=== PATIENT | male | born 1975 | race Caucasian/White ===

== ENCOUNTER 2018-05-20 19:54 | Emergency (ER) | payer MEDICARE, MEDICAID ==
[~2018-05-20] VITALS: Ht 167.6 cm; Wt 81.0 kg
[2018-05-20 20:06] VITALS: BP 131/101
[2018-05-20] MEDS ORDERED: penicillin V potassium 500mg tablet PO ONE (20:15)
[2018-05-20] MEDS ORDERED: HYDROcodone/acetaminophen 10/325mg tab PO ONE (20:15)
[2018-05-20] MEDS ORDERED: PENI500T2 PO (20:18)
== END 2018-05-20 20:37 | disposition home or self-care (01) ==
LOC: ER 19:54
DX: K08.89 Other specified disorders of teeth and supporting structures (principal); J45.909 Unspecified asthma, uncomplicated; K21.9 Gastro-esophageal reflux disease without esophagitis; E11.9 Type 2 diabetes mellitus without complications; F12.90 Cannabis use, unspecified, uncomplicated; Z98.890 Other specified postprocedural states; Z56.0 Unemployment, unspecified
CPT/HCPCS: 99283

== ENCOUNTER 2019-10-01 08:31 | Emergency (ER) | payer MEDICARE, MEDICAID ==
[~2019-10-01] VITALS: Ht 170.2 cm; Wt 87.9 kg
[2019-10-01 08:38] VITALS: BP 138/89
[2019-10-01] MEDS ORDERED: AMOX-422 PO (09:10)
== END 2019-10-01 10:29 | disposition home or self-care (01) ==
LOC: ER 08:31
DX: K04.7 Periapical abscess without sinus (principal); J45.909 Unspecified asthma, uncomplicated; K21.9 Gastro-esophageal reflux disease without esophagitis; B19.20 Unspecified viral hepatitis C without hepatic coma; E11.8 Type 2 diabetes mellitus with unspecified complications; F41.9 Anxiety disorder, unspecified; F32.9 Major depressive disorder, single episode, unspecified; F20.9 Schizophrenia, unspecified; F12.90 Cannabis use, unspecified, uncomplicated; Z98.890 Other specified postprocedural states; Z56.0 Unemployment, unspecified; Z79.899 Other long term (current) drug therapy
CPT/HCPCS: 10060; 99282

== ENCOUNTER 2020-05-15 06:26 | Emergency (ER) | payer MEDICARE, MEDICAID ==
[~2020-05-15] VITALS: Ht 170.2 cm; Wt 78.0 kg
[2020-05-15] MEDS ORDERED: LIDOcaine 1% W/epiNEPHrine 1:200,000 10ml vial IJ ONE (07:50)
[2020-05-15] MEDS ORDERED: HYDROcodone/acetaminophen 10/325mg tab PO ONE (07:50)
[2020-05-15] MEDS ORDERED: amox tr/potassium clavulanate 875/125mg TAB PO ONE (07:50)
[2020-05-15] MEDS ORDERED: TETanus/Pertussis (Acell)/Diphther VAC/PF (Tdap-Adult) 0.5ml syringe IMVAC ONE (07:50)
[2020-05-15] MEDS ORDERED: LIDOcaine 1% W/epiNEPHrine 1:100,000 20ml vial SQ ONE (08:15)
[2020-05-15] MEDS ORDERED: SULF1TAB49 PO (08:59)
[2020-05-15 10:00] VITALS: BP 120/82
== END 2020-05-15 10:04 | disposition home or self-care (01) ==
LOC: ER 06:27
DX: L72.3 Sebaceous cyst (principal); J45.909 Unspecified asthma, uncomplicated; K21.9 Gastro-esophageal reflux disease without esophagitis; E11.9 Type 2 diabetes mellitus without complications; F41.9 Anxiety disorder, unspecified; F32.9 Major depressive disorder, single episode, unspecified; F20.9 Schizophrenia, unspecified; F12.90 Cannabis use, unspecified, uncomplicated; Z98.890 Other specified postprocedural states; Z79.899 Other long term (current) drug therapy
CPT/HCPCS: 10060; 90471; 90715; 99283

== ENCOUNTER 2020-07-13 08:41 | Emergency (ER) | payer MEDICARE, MEDICAID ==
[~2020-07-13] VITALS: Ht 170.2 cm; Wt 85.0 kg
[2020-07-13 08:52] VITALS: BP 120/91
[2020-07-13] MEDS ORDERED: HYDROcodone/acetaminophen 10/325mg tab PO ONE (09:35)
[2020-07-13] MEDS ORDERED: sulfamethoxazole/trimethoprim DS (800/160mg) tablet PO ONE (09:35)
[2020-07-13] MEDS ORDERED: cephalexin 250mg capsule PO ONE (09:35)
[2020-07-13] MEDS ORDERED: LIDOcaine 1% W/epiNEPHrine 1:200,000 10ml vial IJ ONE (09:40)
[2020-07-13] MEDS ORDERED: LIDOcaine 1% w/epiNEPHrine 1:200,000 30ml vial IJ ONE (09:45)
--- NOTE | 2020-07-13 09:56 | NUR ---
PROVIDER IN ROOM TO INJECT LIDOCAIN. ADMIN PAIN MEDS AND ABX.
[2020-07-13] MEDS ORDERED: SULF1TAB49 PO (10:34)
[2020-07-13] MEDS ORDERED: CEPH-572 PO (10:35)
== END 2020-07-13 11:01 | disposition home or self-care (01) ==
LOC: ER 08:42
DX: L02.01 Cutaneous abscess of face (principal); K08.89 Other specified disorders of teeth and supporting structures; K21.9 Gastro-esophageal reflux disease without esophagitis; E11.9 Type 2 diabetes mellitus without complications; F12.90 Cannabis use, unspecified, uncomplicated; Z79.2 Long term (current) use of antibiotics; Z79.899 Other long term (current) drug therapy; J45.909 Unspecified asthma, uncomplicated; Z86.61 Personal history of infections of the central nervous system; Z56.0 Unemployment, unspecified
CPT/HCPCS: 10060; 99284